=== PATIENT | female | born 1950 | race African-American/Black ===

== ENCOUNTER → 2019-01-19 | Outpatient (CLI) | payer MEDICARE ==
--- NOTE | 2019-01-19 15:19 | KCIC ---
RENAL COMPLETE BILATERAL History: Kidney cancer Comparison: September 16, 2007 CT exam of the abdomen pelvis Findings: Multiple sonographic images of the kidneys, urinary bladder, and retroperitoneal structures are submitted. Right kidney measured 9.9 x 4 x 4.8 cm. Left kidney measured 12.3 x 5.2 x 4.4 cm. There is no hydronephrosis of either kidney. No discrete renal mass is demonstrated. Reportedly there has been previous right kidney surgery for removal of mass. Abdominal aortic caliber is within normal limits up to 2.5 cm proximally. There is segmental visualization of the inferior vena cava. Urinary bladder morphology is within normal limits. Right ureteral jet is not seen during exam, left ureteral jet visualized in the urinary bladder lumen. Impression: 1. No discrete renal mass is demonstrated on this exam, smaller size of right kidney presumably related to previous right renal surgery. Electronically signed by: Gilbert Flores MD (01/19/2019 3:16 PM) [id number]
== END | disposition home or self-care (01) ==
LOC: KCIC US 10:48
PROVIDERS: ATTEND Family Medicine
DX: C64.9 Malignant neoplasm of unspecified kidney, except renal pelvis (principal)
CPT/HCPCS: 76770